=== PATIENT | female | born 1970 | race Hispanic/Latino ===

== ENCOUNTER 2018-03-18 19:30 | Emergency (ER) | payer MEDICARE ==
[~2018-03-18] VITALS: Ht 154.9 cm; Wt 59.0 kg
[2018-03-18] MEDS ORDERED: MULTIVITAMINS1 EAC4 PO (20:32)
[2018-03-18] MEDS ORDERED: BROMFED DM COU118 ML PO (20:32)
[2018-03-18] MEDS ORDERED: TESSALON PERLE100 MG PO (20:32)
[2018-03-18 20:42] VITALS: BP 130/70
== END 2018-03-18 20:44 | disposition home or self-care (01) ==
LOC: FSED 19:30
DX: R05 Cough (principal); J00 Acute nasopharyngitis [common cold]; B34.9 Viral infection, unspecified; D50.9 Iron deficiency anemia, unspecified
CPT/HCPCS: 93005; 99282